=== PATIENT | male | born 1985 | race Caucasian/White ===

== ENCOUNTER 2016-10-30 13:15 | Emergency (ER) | payer SELFPAY ==
[~2016-10-30] VITALS: Ht 177.8 cm; Wt 60.0 kg
[~2016-10-30 13:15] MED LIST: CEPH500C3 PO
[2016-10-30 13:17] VITALS: BP 142/77; PULSE 88; RESP 20; TEMP 97.7; O2SAT 99
[2016-10-30] MEDS ORDERED: ONDANSETRON HCL 4 MG/2 ML VIAL IV PUSH ONE (13:45)
[2016-10-30] MEDS ORDERED: MORPHINE SULFATE 4 MG/ML INJ IV PUSH ONE (13:45)
[2016-10-30] MEDS ORDERED: SODIUM CHLORIDE 0.9% FLUSH 10 ML FLUSH IVF PRN (13:45)
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
[2016-10-30 14:30] VITALS: BP 122/81; PULSE 79; RESP 16; TEMP 97.8; O2SAT 99
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
[2016-10-30] MEDS ORDERED: TRAM50TA PO (15:37)
[2016-10-30 15:55] VITALS: BP 120/81; TEMP 97.8
== END 2016-10-30 16:00 | disposition home or self-care (01) ==
LOC: NEPC 13:15
DX: S93.402A Sprain of unspecified ligament of left ankle, initial encounter (principal); W19.XXXA Unspecified fall, initial encounter
CPT/HCPCS: 71010; 72040; 72072; 72100; 73610; 96374; 96375; 99284; J2270; J2405